=== PATIENT | male | born 1995 | race Two or more races ===

== ENCOUNTER 2017-05-19 21:10 | Emergency (ER) | payer BC ==
[~2017-05-19] VITALS: Ht 180.3 cm; Wt 104.3 kg
[2017-05-20] MEDS ORDERED: MORPHINE SULFATE 4 MG/ML SYRG IV ONE (02:15)
[2017-05-20] MEDS ORDERED: ACETAMINOPHEN/CODEINE#3 (300/30mg) TAB PO ONE (02:15)
[2017-05-20 02:34] VITALS: BP 157/102
== END 2017-05-20 02:35 | disposition home or self-care (01) ==
LOC: ER 21:11
DX: S01.01XA Laceration without foreign body of scalp, initial encounter (principal); S00.03XA Contusion of scalp, initial encounter; F17.210 Nicotine dependence, cigarettes, uncomplicated; W22.8XXA Striking against or struck by other objects, initial encounter; Y93.89 Activity, other specified; Y99.8 Other external cause status; Y92.89 Other specified places as the place of occurrence of the external cause
CPT/HCPCS: 70450

== ENCOUNTER 2017-05-30 12:23 | Emergency (ER) | payer BC ==
[~2017-05-30] VITALS: Ht 180.3 cm; Wt 104.3 kg
[2017-05-30 12:34] VITALS: BP 151/87
== END 2017-05-30 13:02 | disposition home or self-care (01) ==
LOC: ER 12:26
DX: S01.01XD Laceration without foreign body of scalp, subsequent encounter (principal); Z48.02 Encounter for removal of sutures; F17.210 Nicotine dependence, cigarettes, uncomplicated

== ENCOUNTER 2022-09-12 01:55 | Emergency (ER) | payer BC, MEDICAID ==
[~2022-09-12] VITALS: Ht 180.3 cm; Wt 113.5 kg
[2022-09-12 02:10] VITALS: BP 152/91
[2022-09-12] MEDS ORDERED: KETOROLAC TROMETH 60MG/2ML VIAL IM ONE (04:15)
== END 2022-09-12 04:28 | disposition home or self-care (01) ==
LOC: ER 01:55
DX: S40.862A Insect bite (nonvenomous) of left upper arm, initial encounter (principal); W57.XXXA Bitten or stung by nonvenomous insect and other nonvenomous arthropods, initial encounter; Y93.89 Activity, other specified; Y92.89 Other specified places as the place of occurrence of the external cause; Y99.8 Other external cause status
CPT/HCPCS: 96372; 99283; J1885